=== PATIENT | male | born 1950 | race Two or more races ===

== ENCOUNTER 2021-05-13 09:12 | Emergency (ER) | payer MEDICARE ==
[~2021-05-13] VITALS: Ht 154.9 cm; Wt 78.1 kg
[2021-05-13] MEDS ORDERED: fentaNYL PF VIAL 100 MCG/2 ML VIAL IVP ONE (10:00)
--- NOTE | 2021-05-13 10:02 | PHYS DOC ---
Past Medical History Past Medical History: Hypertension Past Medical History "prostate problems" Past Surgical History: No Surgical History Smoking Status: Never Smoker Alcohol Use: None General Adult EDM: Chief Complaint: FLANK PAIN Problems: (1) Difficulty in urination HPI: HPI: 71-year-old male with a history of "prostate problems "presents to the emergency department complaining of difficulty with urination, back pain, intermittent fever, left testicular pain for the past 1 month worsening today with difficulty with urination. He reports that he sees a urologist for his prostate problems, but has not been seen yet. He has been treated for prostatitis in the past which had a similar presentation. He has never had imaging of his abdomen in the past. His back pain is in present for about 1 month, is intermittent, does not radiate, associated with a low-grade fever less than 100 F. The patient denies nausea, vomiting chills, chest pain, shortness of breath, cough, recent trauma, or any other complaints. Review of Systems: Review of Systems: Constitutional: Admits intermittent fever, denies chills. HENT: Denies congestion or sore throat. Respiratory: Denies cough or shortness of breath. Cardiovascular: Denies chest pain or edema. GI: Denies abdominal pain, nausea. : MS of left testicular pain, prostate pain, dysuria, denies hematuria. Musculoskeletal: Denies extremity pain, or trauma. Skin: Denies rash, skin change. Neurologic: Denies headache, focal weakness. Psychiatric: Denies depression or anxiety. All other systems reviewed as negative except for what was mentioned in the HPI. Heart Score: C/O Chest Pain: No Current Medications: My Orders - JERAD BRIGGS DO Procedure Category Date Status Time 12 Lead Ekg EKG 05/13/21 Logged 09:46 Vital Signs Monitoring ER 05/13/21 Transmitted 09:55 Cbc W [employer] LAB 05/13/21 Logged 09:55 Ua, Cult If Indicated LAB 05/13/21 Logged 09:55 Lipase LAB 05/13/21 Logged 09:55 Comprehensive LAB 05/13/21 Logged Metabolic Panel 09:55 Ct Abd Pelv W/ Iv CT 05/13/21 Logged Contrst Only 09:55 Pulse Oximetry: JEAN 05/13/21 In Process Standing Order 09:55 Fentanyl Pf Vial PHA 05/13/21 Logged (Fentanyl 2ml Vial) 10:00 Testicular/Scrotum US 05/13/21 Logged 09:[address] 05/13/21 Logged W/Contrast 09:55 Physical Exam: PE: Constitutional: No acute distress, non-toxic appearance. HENT: Atraumatic, bilateral external ears normal, nose normal. Eyes: PERRLA, EOMI, conjunctiva normal, no discharge. Neck: Normal range of motion, supple, no stridor. Cardiovascular: Heart rate regular rhythm. 2+ radial pulses Lungs & Thorax: No respiratory distress, symmetrical expansion. Bilateral breath sounds clear to auscultation Abdomen: Soft, no tenderness no external lesions. Rectal tone intact. No prosta te masses palpable. No masses palpable. Brown stool. No gross blood. Design Lead present for entire exam: Katerin Spears RN Skin: Warm, dry. Extremities: No tenderness, no cyanosis, ROM intact, no edema. Neurologic: Alert and oriented X 3, normal motor function, normal sensory function, no focal deficits noted. Non ataxic gait. GCS 15. Psychologic: Affect normal, judgment normal, mood normal. Current Patient Data: Labs: Laboratory Tests Test 05/13/21 09:29 05/13/21 10:16 Urine Collection Type Void Urine Color Yellow Urine Clarity Clear Urine pH 6.5 (<5.0-8.0) Urine Specific [place] 1.015 (1.000-1.030) Urine Protein Negative mg/dL (NEG-TRACE) Urine Glucose (UA) Negative mg/dL (NEG) Urine Ketones (Stick) Negative mg/dL (NEG) Urine Blood Negative (NEG) Urine Nitrite Negative (NEG) Urine Bilirubin Negative (NEG) Urine Urobilinogen Dipstick 0.2 mg/dL (0.2 mg/dL) Urine Leukocyte Esterase Negative (NEG) Urine RBC 0 /HPF (0-2) Urine WBC 0 /HPF (0-4) Urine Bacteria 0 /HPF (0-FEW) Urine Mucus Slight /LPF White Blood Count 4.6 x10^3/uL (4.0-11.0) Red Blood Count 4.42 x10^6/uL (4.30-5.70) Hemoglobin 14.2 g/dL (13.0-17.5) Hematocrit 41.4 % (39.0-53.0) Mean Corpuscular Volume 94 fL (79-100) Mean Corpuscular Hemoglobin 32 pg (25-35) Mean Corpuscular Hemoglobin Concent 34 g/dL (31-37) Red Cell Distribution Width 13.3 % (11.5-14.5) Platelet Count 154 x10^3/uL (140-400) Neutrophils (%) (Auto) 67 % (31-73) Lymphocytes (%) (Auto) 23 % (24-48) Monocytes (%) (Auto) 8 % (0-9) Eosinophils (%) (Auto) 1 % (0-3) Basophils (%) (Auto) 1 % (0-3) Neutrophils # (Auto) 3.1 x10^3/uL (1.8-7.7) Lymphocytes # (Auto) 1.1 x10^3/uL (1.0-4.8) Monocytes # (Auto) 0.4 x10^3/uL (0.0-1.1) Eosinophils # (Auto) 0.0 x10^3/uL (0.0-0.7) Basophils # (Auto) 0.0 x10^3/uL (0.0-0.2) Sodium Level 134 mmol/L (136-145) Potassium Level 4.6 mmol/L (3.5-5.1) Chloride Level 101 mmol/L (98-107) Carbon Dioxide Level 27 mmol/L (21-32) Anion Gap 6 (6-14) Blood Urea Nitrogen 13 mg/dL (8-26) Creatinine 1.1 mg/dL (0.7-1.3) Estimated GFR (Cockcroft-Gault) 66.2 BUN/Creatinine Ratio 12 (6-20) Glucose Level 108 mg/dL (70-99) Calcium Level 8.7 mg/dL (8.5-10.1) Total Bilirubin 0.2 mg/dL (0.2-1.0) Aspartate Amino Transf (AST/SGOT) 34 U/L (15-37) Alanine Aminotransferase (ALT/SGPT) 45 U/L (16-63) Alkaline Phosphatase 101 U/L (46-116) Total Protein 7.2 g/dL (6.4-8.2) Albumin 3.3 g/dL (3.4-5.0) Albumin/Globulin Ratio 0.8 (1.0-1.7) Lipase 203 U/L (73-393) EKG: EKG: Normal sinus rhythm rate of 70, T wave inversions in V4 through V6, no ST elevations or depressions, normal axis, normal CO, QRS, and QTc intervals. Impression: T wave inversions in lateral leads interpreted by Jerad kidd D.O. Radiology/Procedures: Radiology/Procedures: EXAM: Abdomen and pelvis CT with intravenous contrast; lumbar spine CT without contrast. HISTORY: Pain. TECHNIQUE: Computed tomographic images of the abdomen and pelvis were obtained following the administration of intravenous contrast. Reconstructed images of the lumbar spine were also obtained. Multiplanar reformatting was performed. *One or more of the following individualized dose reduction techniques were utilized for this examination: 1. Automated exposure control. 2. Adjustment of the mA and/or kV according to patient size. 3. Use of iterative reconstruction technique. COMPARISON: None. FINDINGS: Evaluation of the lower thorax demonstrates pleural posterior dependent and basilar atelectasis. There is lingular and right middle lobe atelectasis or scarring. There is slight left posterior lateral pleural thickening likely due to scarring. The heart is normal in size. No hepatic lesion is seen. The gallbladder, pancreas, spleen and adrenal glands are unremarkable. There are multiple small simple appearing renal cysts. Follow-up is not routinely performed for simple cysts. There is no hydronephrosis. There is mild right renal cortical scarring. There is no appendicitis. There is no bowel obstruction. There is no abnormal bowel wall thickening. The urinary bladder is distended. The prostate is enlarged and contains calcifications. The aorta is normal in caliber. There is no lymphadenopathy. There is increased fat within the right inguinal canal. There is moderate bilateral hip osteoarthritis. There is grade 1 anterolisthesis of L5 on S1 measuring 8 mm. There are associated pars interarticularis defects at this level. There is mild retrolisthesis of L2 on L3 and L3 on L4. There is multilevel endplate remodeling. There are bridging and partially bridging anterior osteophytes at the thoracic and lumbar levels. There is a large Schmorl's node within the inferior aspect of L3. There is vacuum phenomenon within the disc spaces at the lower lumbar levels. There is degenerative spurring and partial ankylosis of the sacroiliac joints. At T12-L1, there is a posterior central to left paracentral disc protrusion and osteophyte complex superimposed on endplate remodeling. There is moderate right and mild left facet arthropathy. There is mild central canal stenosis. At L1-L2, there is endplate remodeling. There is moderate right and mild left facet arthropathy. There is no stenosis. At L2-L3, there is a disc bulge and endplate osteophytosis. There is moderate right and mild left facet arthropathy. There is slight retrolisthesis. There is mild right foraminal stenosis. There is minimal central canal stenosis. At L3-L4, there is a disc bulge and endplate osteophytosis. There is mild bilateral facet arthropathy. There is slight retrolisthesis. There is mild right and moderate left foraminal stenosis. There is mild central canal stenosis. At L4-L5, there is a disc bulge and endplate osteophytosis. There is severe right and mild left facet arthropathy. There is slight retrolisthesis. There is mild left foraminal stenosis. At L5-S1, there are bilateral lateral recess to extra foraminal disc osteophyte complexes superimposed on a disc bulge and endplate osteophytosis. There is grade 1 anterolisthesis with bilateral pars defects. There is mild right facet arthropathy. There is severe bilateral foraminal stenosis with effacement of the exiting L5 nerve roots. IMPRESSION: 1. Multilevel degenerative change involving the lumbar spine, described in detail above. This is most significant at the lumbosacral junction. The combination of degenerative disc disease and grade 1 anterolisthesis with bilateral pars defects at this level results in severe bilateral foraminal stenosis and effacement of the exiting L5 nerve roots. 2. Moderate bilateral hip osteoarthritis and degenerative change involving the sacroiliac joints, the latter of which is associated with partial ankylosis. 3. Distended urinary bladder and enlarged prostate. Correlate for possible chronic outlet obstruction. 4. Simple appearing renal cysts. Electronically signed by: Tiffany Cat MD (05/13/2021 11:49 AM) PROCEDURE: TESTICULAR/SCROTUM Ultrasound of the scrotum with color Doppler performed. CLINICAL HISTORY: Reason: left testicle pain x 1 month COMPARISON: None available. TECHNIQUE: Ultrasound images of the scrotum was performed with childers-scale and color doppler. FINDINGS: The right testis measures 3.9 x 2.8 x 1.8. The left testis measures 3.2 x 2.5 x 2.2. There is no intratesticular abnormality. Testicular vascularity is symmetric and within normal limits. The epididymis is normal in appearance bilaterally. There is bilateral mild hydroceles. There is no varicocele.. IMPRESSION: Bilateral small hydroceles. Electronically signed by: Jose Singh MD (05/13/2021 10:48 AM) Course & Med Decision Making: Course & Med Decision Making Objective examination is likely suggestive of chronic BPH with urinary outlet obstruction. Advised him he will need to follow-up with his urologist as scheduled as well as neurosurgery which I have provided contact information for. Patient otherwise is hemodynamically stable. He does not have evidence of prostatitis on his imaging today. Negative for torsion. He has an appoint with urology on 05/22, advised him to call the urology office today and try to move up his appointment and also could to contact neurosurgery clinic. The patient is able to walk, he is able to urinate, he has no focal neurological findings, there is no objective data for cauda equina syndrome today. He was given return precautions including weakness in the legs, saddle anesthesia, incontinence of bowel or urine, inability to urinate, intractable pain or any further symptom he would deem appropriate for reevaluation. Patient understood all instructions. Per patient choice, the patient's family member translated for him. Departure Departure Impression: Primary Impression: BPH with urinary obstruction Disposition: 01 HOME / SELF CARE / HOMELESS Condition: STABLE Referrals: ILIANA HENDERSON MD Patient Instructions: Benign Prostatic Hypertrophy Additional Instructions: Your exam today was suggestive of benign prostatic hyperplasia which is causing urinary obstruction. You need to follow-up with your urologist as soon as possible as well as neurosurgery for your vertebrae. Scripts Oxycodone HCl (Oxycodone HCl) 5 Mg Tablet 5 MG PO Q6-8HRS PRN for PAIN for 2 Days, #8 TAB Prov: JERAD BRIGGS DO 05/13/21 JERAD BRIGGS DO May 13, 2021 10:02
[2021-05-13 10:13] LABS: BILIRUBIN,URINE NEGATIVE (NEG); CLARITY,URINE CLEAR; COLOR,URINE YELLOW; NITRITE,URINE NEGATIVE (NEG); PH,URINE 6.5 (<5.0-8.0); PROTEIN,URINE NEGATIVE (NEG-TRACE); UROBILINOGEN,URINE 0.2 mg/dL (0.2 mg/dL)
[2021-05-13 10:30] LABS: BACTERIA,URINE 0 /HPF (0-FEW); RBC,URINE 0 /HPF (0-2); WBC,URINE 0 /HPF (0-4)
[2021-05-13 10:40] LABS: BASO % 1 % (0-3); EOS % 1 % (0-3); HEMATOCRIT 41.4 % (39.0-53.0); HEMOGLOBIN 14.2 g/dL (13.0-17.5); LYMPH # 1.1 x10^3/uL (1.0-4.8); LYMPH % 23 % (24-48); MEAN CORPUSCULAR HEMOGLOBIN 32 pg (25-35); MEAN CORPUSCULAR HGB CONC 34 g/dL (31-37); MEAN CORPUSCULAR VOLUME 94 fL (79-100); MONO # 0.4 x10^3/uL (0.0-1.1); MONO % 8 % (0-9); NEUT # 3.1 x10^3/uL (1.8-7.7); NEUT % 67 % (31-73); PLATELET COUNT 154 x10^3/uL (140-400); RED BLOOD COUNT 4.42 x10^6/uL (4.30-5.70); RED CELL DISTRIBUTION WIDTH 13.3 % (11.5-14.5); WHITE BLOOD COUNT 4.6 x10^3/uL (4.0-11.0)
[2021-05-13 10:42] LABS: CALCIUM 8.7 mg/dL (8.5-10.1); CREATININE 1.1 mg/dL (0.7-1.3); GFR 66.2; POTASSIUM 4.6 mmol/L (3.5-5.1)
[2021-05-13 10:48] LABS: ALBUMIN 3.3 g/dL (3.4-5.0); ALBUMIN/GLOBULIN RATIO 0.8 (1.0-1.7); TOTAL BILIRUBIN 0.2 mg/dL (0.2-1.0); TOTAL PROTEIN 7.2 g/dL (6.4-8.2)
--- NOTE | 2021-05-13 10:50 | RAD ---
Ultrasound of the scrotum with color Doppler performed. CLINICAL HISTORY: Reason: left testicle pain x 1 month COMPARISON: None available. TECHNIQUE: Ultrasound images of the scrotum was performed with childers-scale and color doppler. FINDINGS: The right testis measures 3.9 x 2.8 x 1.8. The left testis measures 3.2 x 2.5 x 2.2. There is no intratesticular abnormality. Testicular vascularity is symmetric and within normal limit s. The epididymis is normal in appearance bilaterally. There is bilateral mild hydroceles. There is no varicocele.. IMPRESSION: Bilateral small hydroceles. Electronically signed by: Jose Singh MD (05/13/2021 10:48 AM) [id number]
[2021-05-13] MEDS ORDERED: IOHEXOL 300 MG/ML 100ML VIAL. IV ONE (11:00)
--- NOTE | 2021-05-13 11:51 | RAD ---
EXAM: Abdomen and pelvis CT with intravenous contrast; lumbar spine CT without contrast. HISTORY: Pain. TECHNIQUE: Computed tomographic images of the abdomen and pelvis were obtained following the administ ration of intravenous contrast. Reconstructed images of the lumbar spine were also obtained. Multipla cali reformatting was performed. *One or more of the following individualized dose reduction techniques were utilized for this examina tion: 1. Automated exposure control. 2. Adjustment of the mA and/or kV according to patient size. 3. Use of iterative reconstruction technique. COMPARISON: None. FINDINGS: Evaluation of the lower thorax demonstrates pleural posterior dependent and basilar atelect asis. There is lingular and right middle lobe atelectasis or scarring. There is slight left posterior lateral pleural thickening likely due to scarring. The heart is normal in size. No hepatic lesion is seen. The gallbladder, pancreas, spleen and adrenal glands are unremarkable. There are multiple smal l simple appearing renal cysts. Follow-up is not routinely performed for simple cysts. There is no hy dronephrosis. There is mild right renal cortical scarring. There is no appendicitis. There is no bowel obstruction. There is no abnormal bowel wall thickening. The urinary bladder is distended. The prostate is enlarged and contains calcifications. The aorta is normal in caliber. There is no lymphadenopathy. There is increased fat within the right inguinal osman l. There is moderate bilateral hip osteoarthritis. There is grade 1 anterolisthesis of L5 on S1 measuring 8 mm. There are associated pars interarticular is defects at this level. There is mild retrolisthesis of L2 on L3 and L3 on L4. There is multilevel endplate remodeling. There are bridging and partially bridging anterior osteophytes at the thoracic a nd lumbar levels. There is a large Schmorl's node within the inferior aspect of L3. There is vacuum p henomenon within the disc spaces at the lower lumbar levels. There is degenerative spurring and parti al ankylosis of the sacroiliac joints. At T12-L1, there is a posterior central to left paracentral disc protrusion and osteophyte complex jimenez perimposed on endplate remodeling. There is moderate right and mild left facet arthropathy. There is mild central canal stenosis. At L1-L2, there is endplate remodeling. There is moderate right and mild left facet arthropathy. Ther e is no stenosis. At L2-L3, there is a disc bulge and endplate osteophytosis. There is moderate right and mild left fac et arthropathy. There is slight retrolisthesis. There is mild right foraminal stenosis. There is mini mal central canal stenosis. At L3-L4, there is a disc bulge and endplate osteophytosis. There is mild bilateral facet arthropathy . There is slight retrolisthesis. There is mild right and moderate left foraminal stenosis. There is mild central canal stenosis. At L4-L5, there is a disc bulge and endplate osteophytosis. There is severe right and mild left facet arthropathy. There is slight retrolisthesis. There is mild left foraminal stenosis. At L5-S1, there are bilateral lateral recess to extra foraminal disc osteophyte complexes superimpose d on a disc bulge and endplate osteophytosis. There is grade 1 anterolisthesis with bilateral pars de fects. There is mild right facet arthropathy. There is severe bilateral foraminal stenosis with effac ement of the exiting L5 nerve roots. IMPRESSION: 1. Multilevel degenerative change involving the lumbar spine, described in detail above. This is most significant at the lumbosacral junction. The combination of degenerative disc disease and grade 1 an terolisthesis with bilateral pars defects at this level results in severe bilateral foraminal stenosi s and effacement of the exiting L5 nerve roots. 2. Moderate bilateral hip osteoarthritis and degenerative change involving the sacroiliac joints, the latter of which is associated with partial ankylosis. 3. Distended urinary bladder and enlarged prostate. Correlate for possible chronic outlet obstruction . 4. Simple appearing renal cysts. Electronically signed by: Tiffany Cat MD (05/13/2021 11:49 AM) [id number]
[2021-05-13] MEDS ORDERED: OXYC5TAB2 PO (12:15)
[2021-05-13 12:26] VITALS: BP 132/77
--- NOTE | 2021-05-13 15:05 | EKG ---
[facility] [address] [place] [address] Test Date: 2021-05-13 Test Time: 10:22:39 Pat Name: KRISTA DICKENS Department: Room: Gender: M [employer]: : 1950 Requested By: GRIS BRIGGS Order Number: [id number] Reading MD: Measurements Intervals [place] Rate: 71 P: 23 VA: 170 QRS: 11 QRSD: 88 T: 79 QT: 372 QTc: 409 Interpretive Statements SINUS RHYTHM QRS(T) CONTOUR ABNORMALITY CANNOT RULE OUT ANTEROSEPTAL MYOCARDIAL DAMAGE T ABNORMALITY IN ANTERIOR LEADS ABNORMAL ECG RI6.02 No previous ECG available for comparison
== END 2021-05-13 12:41 | disposition home or self-care (01) ==
LOC: ER 09:12
DX: N40.1 Benign prostatic hyperplasia with lower urinary tract symptoms (principal); N13.8 Other obstructive and reflux uropathy; N50.812 Left testicular pain; N28.1 Cyst of kidney, acquired; M16.0 Bilateral primary osteoarthritis of hip; R07.89 Other chest pain; I10 Essential (primary) hypertension
CPT/HCPCS: 36415; 74177; 76870; 80053; 81001; 83690; 85025; 93005; 96374; 99285; J3010; Q9967